=== PATIENT | female | born 1930 | race Caucasian/White ===

== ENCOUNTER 2018-01-14 20:39 | Inpatient (IN) | payer MEDICARE, OTHER ==
[~2018-01-14] VITALS: Ht 165.1 cm; Wt 59.0 kg
[2018-01-14] MEDS ORDERED: NORVASC2.5 MG PO (21:48)
[2018-01-14] MEDS ORDERED: COREG 6.256.25 MG/TA PO (21:49)
[2018-01-14] MEDS ORDERED: PLAVIX 75MG TAB75 MG PO (21:49)
[2018-01-14] MEDS ORDERED: B-121000 MCG PO (21:50)
[2018-01-14] MEDS ORDERED: ARICEPT10 MG PO (21:51)
[2018-01-14] MEDS ORDERED: VOLTAREN GEL 1%1 TU TP (21:51)
[2018-01-14] MEDS ORDERED: ULORIC40 MG PO (21:52)
[2018-01-14 21:53] VITALS: BP 174/74; PULSE 67; TEMP 98.4
[2018-01-14] MEDS ORDERED: OMEGA-3 1000 MG1 CAP PO (21:56)
[2018-01-14] MEDS ORDERED: IMDUR 30MG30 MG/TAB PO (21:58)
[2018-01-14] MEDS ORDERED: FOLIC ACID0.4 MG PO (21:58)
[2018-01-14] MEDS ORDERED: JANUVIA 100MG100 MG PO (21:59)
[2018-01-14] MEDS ORDERED: NAMENDA 10MG TA10 MG PO (22:00)
[2018-01-14] MEDS ORDERED: ZESTRIL40 MG PO (22:00)
[2018-01-14] MEDS ORDERED: ACTOS30 MG PO (22:01)
[2018-01-14] MEDS ORDERED: NITROSTAT0.4 MG/TAB SL (22:01)
[2018-01-14] MEDS ORDERED: PROTONIX 40MG T40 MG PO (22:01)
[2018-01-14] MEDS ORDERED: LYRICA 100MG C100 M1 PO (22:02)
[2018-01-14] MEDS ORDERED: PRAVACHOL 40MG40 MG PO (22:02)
[2018-01-14] MEDS ORDERED: OCUVITE1 TA1 PO (22:03)
[2018-01-14] MEDS ORDERED: DETROL LA 2 MG2 MG PO (22:03)
[2018-01-15] VITALS (7 sets, daily range): BP systolic 101–172; BP diastolic 46–86; PULSE 58–120; TEMP 97.7–98.8
[2018-01-15 09:55] LABS: BASO % 0.4 % (0.0-2.0); EOS % 0.4 % (0-4.0); GRAN # 6.5 (1.4-6.5); GRAN % 84.5 % (42.2-75.2); HEMOGLOBIN 12.1 g/dl (12.5-16.0); LYMPH # 0.6 (1.2-3.4); MEAN CELL VOLUME 97 fl (80.0-100.0); MEAN CORPUSCULAR HEMOGLOBIN 32 pg (27.0-31.0); MEAN CORPUSCULAR HGB CONC 33 g/dl (33.0-37.0); MEAN PLATELET VOLUME 10.3 fl (7.4-10.4); MONO # 0.5 (0.1-0.6); MONO % 6.2 % (1.7-9.3); PLATELET COUNT 149 K/mm3 (130-400); RED BLOOD COUNT 3.82 M/mm3 (4.10-5.30); REDCELL DISTRIBUTION WIDTH-CV 14.4 % (11.5-14.5)
[2018-01-15 09:56] LABS: HEMATOCRIT 36.9 % (37.0-47.0)
[2018-01-15 10:06] LABS: CALCIUM 9.5 mg/dL (8.4-10.2); CREATININE, serum 1.26 mg/dL (0.52-1.25); POTASSIUM 4.6 mmol/L (3.4-5.0)
[2018-01-15 10:20] LABS: TROPONIN-I 0.67 ng/mL (0.000-0.034)
[2018-01-16] VITALS (8 sets, daily range): BP systolic 118–147; BP diastolic 47–68; PULSE 59–68; TEMP 98–99.6
[2018-01-16 06:52] LABS: CREATININE, serum 1.19 mg/dL (0.52-1.25); POTASSIUM 3.8 mmol/L (3.4-5.0)
[2018-01-17] VITALS (7 sets, daily range): BP systolic 142–165; BP diastolic 61–81; PULSE 59–76; TEMP 97.4–98.9
[2018-01-17 06:47] LABS: BASO % 0.7 % (0.0-2.0); EOS # 0.1 (0.0-0.7); EOS % 2.6 % (0-4.0); GRAN # 3.4 (1.4-6.5); GRAN % 61.7 % (42.2-75.2); HEMOGLOBIN 10.9 g/dl (12.5-16.0); LYMPH # 1.2 (1.2-3.4); LYMPH % 21.3 % (20.0-51.0); MEAN CELL VOLUME 96 fl (80.0-100.0); MEAN CORPUSCULAR HEMOGLOBIN 32 pg (27.0-31.0); MEAN CORPUSCULAR HGB CONC 33 g/dl (33.0-37.0); MEAN PLATELET VOLUME 10.3 fl (7.4-10.4); MONO # 0.7 (0.1-0.6); MONO % 13.1 % (1.7-9.3); PLATELET COUNT 131 K/mm3 (130-400); RED BLOOD COUNT 3.43 M/mm3 (4.10-5.30); REDCELL DISTRIBUTION WIDTH-CV 14.3 % (11.5-14.5)
[2018-01-17 06:50] LABS: HEMATOCRIT 32.9 % (37.0-47.0)
[2018-01-17 06:51] LABS: CALCIUM 9.1 mg/dL (8.4-10.2); POTASSIUM 3.9 mmol/L (3.4-5.0)
[2018-01-17] MEDS ORDERED: ASPIRIN E.C. 8181 MG PO (08:23)
[2018-01-17] MEDS ORDERED: OMNICEF 300MG300 MG PO (08:23)
[2018-01-17] MEDS ORDERED: IPRATROPIUM BROM3 M1 IH (13:54)
[2018-01-18 03:48] VITALS: BP 154/67; PULSE 77; TEMP 98.6
[2018-01-18 06:38] LABS: BASO % 0.7 % (0.0-2.0); EOS # 0.2 (0.0-0.7); EOS % 2.7 % (0-4.0); GRAN # 3.7 (1.4-6.5); GRAN % 67.7 % (42.2-75.2); LYMPH % 18.3 % (20.0-51.0); MEAN CELL VOLUME 96 fl (80.0-100.0); MEAN CORPUSCULAR HEMOGLOBIN 31 pg (27.0-31.0); MEAN CORPUSCULAR HGB CONC 32 g/dl (33.0-37.0); MONO # 0.6 (0.1-0.6); MONO % 10.4 % (1.7-9.3); PLATELET COUNT 134 K/mm3 (130-400); RED BLOOD COUNT 3.55 M/mm3 (4.10-5.30)
[2018-01-18 06:41] LABS: HEMATOCRIT 34.1 % (37.0-47.0)
[2018-01-18 06:56] LABS: CALCIUM 9.2 mg/dL (8.4-10.2); CREATININE, serum 0.86 mg/dL (0.52-1.25); POTASSIUM 3.9 mmol/L (3.4-5.0)
[2018-01-18 07:50] VITALS: BP 158/65; PULSE 67; TEMP 97.8
[2018-01-18] MEDS ORDERED: VANCOMYCIN 11 G/VIA1 IV (09:31)
[2018-01-18] MEDS ORDERED: NS INT FLUSH 1010 ML IV (09:31)
[2018-01-18] MEDS ORDERED: ROCEPHIN 2GM VIAL21 IV (09:31)
[2018-01-18 11:49] VITALS: BP 141/56; PULSE 55; TEMP 98.2
[2018-01-18 15:22] VITALS: BP 141/56; PULSE 55; TEMP 98.2
[2018-01-20] MEDS ORDERED: NORVASC2.5 MG PO (15:57)
[2018-01-20] MEDS ORDERED: ASPIRIN 81M81 MG/TA2 PO (15:57)
[2018-01-20] MEDS ORDERED: PLAVIX 75MG TAB75 MG PO (15:59)
[2018-01-20] MEDS ORDERED: ROCEPHIN 2GM VIAL21 IV (15:59)
[2018-01-20] MEDS ORDERED: B-121000 MCG PO (16:01)
[2018-01-20] MEDS ORDERED: ARICEPT10 MG PO (16:02)
[2018-01-20] MEDS ORDERED: ULORIC40 MG PO (16:03)
[2018-01-20] MEDS ORDERED: OCUVITE ADULT 51 SGL PO (16:03)
[2018-01-20] MEDS ORDERED: FISH OIL 1000MG1 CAP PO (16:04)
[2018-01-20] MEDS ORDERED: FOLIC ACID0.4 MG PO (16:05)
[2018-01-20] MEDS ORDERED: IMDUR 30MG30 MG/TAB PO (16:06)
[2018-01-20] MEDS ORDERED: PRINIVIL40 MG PO (16:07)
[2018-01-20] MEDS ORDERED: PROTONIX 40MG T40 MG PO (16:07)
[2018-01-20] MEDS ORDERED: JANUVIA 100MG100 MG PO (16:08)
[2018-01-20] MEDS ORDERED: PRAVACHOL 40MG40 MG PO (16:08)
[2018-01-20] MEDS ORDERED: DETROL LA 2 MG2 MG PO (16:10)
[2018-01-20] MEDS ORDERED: COREG12.5 MG PO (16:11)
[2018-01-20] MEDS ORDERED: LYRICA 100MG C100 M1 PO (16:13)
[2018-01-20] MEDS ORDERED: NAMENDA 10MG TA10 MG PO (16:13)
[2018-01-20] MEDS ORDERED: VANCOCIN HCL1 GM IV (16:14)
[2018-01-20] MEDS ORDERED: TYLENOL SU650 MG/SUP RC (16:15)
[2018-01-20] MEDS ORDERED: DULCOLAX S10 MG/SUPP RC (16:17)
[2018-01-20] MEDS ORDERED: VOLTAREN GEL 1%1 TU TP (16:18)
[2018-01-20] MEDS ORDERED: IPRATROPIUM BROM3 M1 IH (16:19)
[2018-01-20] MEDS ORDERED: IMODIUM 2MG CAPS2 MG PO (16:20)
[2018-01-20] MEDS ORDERED: GOOD NEIGH1200 MG/15 PO (16:21)
[2018-01-20] MEDS ORDERED: ALMACONE 360 M360 ML PO (16:29)
[2018-01-20] MEDS ORDERED: TYLENOL 325MG325 MG PO (16:31)
[2018-01-22] MEDS ORDERED: ZOFRAN ODT4 MG PO (07:56)
[2018-01-22] MEDS ORDERED: SENOKOT S 50 MG1 TAB PO (08:00)
[2018-01-22] MEDS ORDERED: COMPAZINE25 MG/SUPP RC (08:00)
[2018-01-22] MEDS ORDERED: ROXANOL 20MG20 MG/ML SL (08:01)
[2018-01-22] MEDS ORDERED: ATIVAN 1MG T1 MG/TAB PO (08:01)
[2018-01-22] MEDS ORDERED: TRANSDERM-0.5 MG/21 TD (08:01)
== END 2018-01-18 15:40 | DRG 280 ==
LOC: MEDICAL 20:39
PROVIDERS: Internal Medicine Cardiovascular Disease; Nurse Practitioner; Nurse Practitioner Family; Physician Assistant
PROC: 02HV33Z Insertion of Infusion Device into Superior Vena Cava, Percutaneous Approach (ICD-10-PCS; principal; 2018-01-18)
DX: I01.1 Acute rheumatic endocarditis (principal); J18.9 Pneumonia, unspecified organism; I21.A1 Myocardial infarction type 2; I13.0 Hypertensive heart and chronic kidney disease with heart failure and stage 1 through stage 4 chronic kidney disease, or unspecified chronic kidney disease; N39.0 Urinary tract infection, site not specified; I50.32 Chronic diastolic (congestive) heart failure; N18.9 Chronic kidney disease, unspecified; Z66 Do not resuscitate; E11.22 Type 2 diabetes mellitus with diabetic chronic kidney disease; F03.90 Unspecified dementia, unspecified severity, without behavioral disturbance, psychotic disturbance, mood disturbance, and anxiety; E11.9 Type 2 diabetes mellitus without complications; J44.9 Chronic obstructive pulmonary disease, unspecified; Z95.2 Presence of prosthetic heart valve; Z79.01 Long term (current) use of anticoagulants; I25.10 Atherosclerotic heart disease of native coronary artery without angina pectoris; Z87.891 Personal history of nicotine dependence; B96.20 Unspecified Escherichia coli [E. coli] as the cause of diseases classified elsewhere; Z95.1 Presence of aortocoronary bypass graft
CPT/HCPCS: 99223-AI; 99232-AI; 99233-AI; 99239; C1751; J0456; J0696; J1815; J1940; J3370; J7050